=== PATIENT | male | born 1975 | race Caucasian/White ===

== ENCOUNTER 2018-11-22 16:53 | Emergency (ER) | payer OTHER ==
[2018-11-22 17:00] VITALS: TEMP 98.3
--- NOTE | 2018-11-22 17:29 | C.PDOC ---
History Of Present Illness 43 y/o male presents to the ED complaining of right-sided chest pain s/p trauma 10 days ago. Patient states he was moving something heavy at work, which slammed into his chest. He denies having similar pain in the past or prior cardiac history. Patient has no associated nausea, vomiting, abdominal pain, back pain, fever, chills, cough, or SOB. Pain worsens with deep inspiration. He has no known PMHx, denies diabetes and hypertension. Time Seen by Provider: 11/22/18 17:11 Chief Complaint (Nursing): Chest Pain History Per: Patient History/Exam Limitations: no limitations Onset/Duration Of Symptoms: Days (10) Current Symptoms Are (Timing): Still Present Exacerbating Factors: Deep Breathing Past Medical History Reviewed: Historical Data, Nursing Documentation, Vital Signs Vital Signs: Last Vital Signs Temp 98.3 F 11/22/18 16:55 Pulse 68 11/22/18 16:55 Resp 20 11/22/18 16:55 BP 148/86 11/22/18 16:55 Pulse Ox 100 11/22/18 16:55 - Medical History PMH: No Chronic Diseases Surgical History: No Surg Hx - [facility] Procedures CLOSURE SKIN & SUBCUTANEOUS NEC (06/30/14) TETANUS TOXOID ADMINIST (06/30/14) Family History: States: No Known Family Hx - Social History Hx Tobacco Use: No Hx Alcohol Use: No Hx Substance Use: No - Immunization History Hx Tetanus Toxoid Vaccination: Yes Hx Influenza Vaccination: No Hx Pneumococcal Vaccination: No Review Of Systems Except As Marked, All Systems Reviewed And Found Negative. Constitutional: Negative for: Fever, Chills Eyes: Negative for: Vision Change Cardiovascular: Positive for: Chest Pain. Negative for: Palpitations, Light Headedness Respiratory: Negative for: Cough, Shortness of Breath Gastrointestinal: Negative for: Nausea, Vomiting, Abdominal Pain, Diarrhea Musculoskeletal: Negative for: Back Pain Neurological: Negative for: Weakness, Numbness, Dizziness Physical Exam - Physical Exam Appears: Well, Non-toxic, No Acute Distress Skin: Normal Color, Warm Head: Atraumatic, Normacephalic Eye(s): bilateral: Normal Inspection Oral Mucosa: Moist Neck: Normal ROM Chest: Tenderness (Right-sided anterior chest wall tenderness on palpation), No Ecchymosis (or rash) Cardiovascular: Rhythm Regular, No Murmur Respiratory: Normal Breath Sounds, No Rales, No Rhonchi, No Wheezing Gastrointestinal/Abdominal: Soft, No Tenderness, No Distention Extremity: Bilateral: Atraumatic, No Pedal Edema, Normal Color And Temperature Pulses: Left Dorsalis Pedis: Normal, Right Dorsalis Pedis: Normal Neurological/Psych: Oriented x3 Gait: Steady ED Course And Treatment ECG: Interpreted By Me ECG Rhythm: Sinus Rhythm ECG Interpretation: Normal Interpretation Of ECG: Normal ST/T waves, Normal axis Rate From EC (bpm) O2 Sat by Pulse Oximetry: 100 (RA) Pulse Ox Interpretation: Normal Medical Decision Making Medical Decision Making: Impression: Chest pain, likely musculoskeletal, will r/o pneumo Plan: --EKG --Chest x-ray --30 mg IM Toradol Disposition - Disposition [facility] Disposition: HOME/ ROUTINE Disposition Time: 19:01 Condition: GOOD Additional Instructions: Follow up with the medical doctor within 1-2 days. Return if worsened. Prescriptions: Naproxen [Naprosyn] 500 mg PO BID #20 tab Instructions: Costochondritis Forms: [employer] (Citizen [place]), Work Excuse Print Language: GABONESE - Clinical Impression Clinical Impression: Musculoskeletal chest pain - PA / STOREROOM ATTENDANT / Resident Statement MD/DO has reviewed & agrees with the documentation as recorded. - Scribe Statement The provider has reviewed the documentation as recorded by the Scriboxana Phillips All medical record entries made by the Scribe were at my direction and personally dictated by me. I have reviewed the chart and agree that the record accurately reflects my personal performance of the history, physical exam, medical decision making, and the department course for this patient. I have also personally directed, reviewed, and agree with the discharge instructions and disposition.
--- NOTE | 2018-11-22 18:21 | RAD ---
Date of service: 11/22/2018 HISTORY: Chest pain following unspecified chest injury. COMPARISON: No prior. TECHNIQUE: Chest PA and lateral FINDINGS: LUNGS: No active pulmonary disease. PLEURA: No significant pleural effusion identified. No pneumothorax apparent. CARDIOVASCULAR: No aortic atherosclerotic calcification present. Normal cardiac size. No pulmonary vascular congestion. OSSEOUS STRUCTURES: No significant abnormalities. VISUALIZED UPPER ABDOMEN: Normal. OTHER FINDINGS: None. IMPRESSION: No active disease.
[2018-11-22 19:14] VITALS: BP 132/79; PULSE 67; RESP 18; O2SAT 98
--- NOTE | 2018-11-26 09:23 | CARD ---
APPROVED REPORT Date of service: 11/22/2018 EKG Measurement Heart [id number] <Conclusion> Normal sinus rhythm Incomplete right bundle branch block Borderline ECG
== END 2018-11-22 19:14 | disposition home or self-care (01) ==
LOC: C.ER 16:53
DX: R07.89 Other chest pain (principal)
CPT/HCPCS: 71046; 96372; 99284; J1885